=== PATIENT | male | born 1980 | race Caucasian/White ===

== ENCOUNTER 2023-12-15 21:15 | Emergency (ER) | payer BC, SELFPAY ==
[2023-12-15 21:17] VITALS: BP 140/99
[2023-12-15 21:57] VITALS: BMI 28.6
--- NOTE | 2023-12-15 22:00 | ED.GENMED ---
History of Present Illness
General
Chief Complaint: Eye Problems
Source: patient
Exam Limitations: none
Time Seen by Provider: 12/15/23 21:22
Nursing documentation reviewed up to this point in time: agreed with
History of Present Illness
History of Present Illness:
43-year-old male presents with foreign body in the right eye. He was working with a piece of plastic using needle-nose pliers and when he pulled on the plastic with a pliers a small chip came off and went into his right eye. He has a foreign body
sensation of the right eye. Denies vision loss or pain. No other complaints. He does not wear contacts.
Past History
Past History
ED Past Medical History: None
ED Past Surgical History: None
Social History
Tobacco: Non-smoker
Personal: Single
Living: with family
Employment: Employed
Family History
Family History: Other (Noncontributory)
Review of Systems
Review of Systems
All Other Systems: ROS reviewed and negative except as documented in HPI and ROS
EENT: Reports other (Foreign body sensation right eye)
Phy Exam
Physical Exam
Physical Exam:
General: Well appearing and non-toxic
Eye: See visual acuity in nursing note; pupils are equal round and reactive to light bilaterally, extraocular movements intact; with specific attention to the right eye: Slight injection of the lateral margin of the right conjunctiva; no hypopyon or
hyphema; inverted lid and swept fornices with successful removal of tiny sliver of plastic; on fluorescein examination no corneal abrasion noted, negative Buzz sign
Neck: appears supple
CV: No evidence of cyanosis
Resp: No accessory muscle use
Abd: Non-distended
Extremities: No deformities
Neuro: Alert
Psych: Normal affect
Skin: Intact
Scores
Heart Failure Risk
Heart Failure Risk Score: Not Applicable
Heart Score for Chest Pain Patients
STEMI patient?: Not applicable
Withdrawal Assessment of Alcohol
Withdrawal Assessment Completed?: Not applicable
Course
Orders/Labs/Results
Orders:
Orders
12/15/23 21:28
Tetracaine HCl [Tetracaine 0.5% Ophthalmic Solution] 1 drop .ROUTE .STK-MED ONE
Vital Signs
Initial and Last Documented VS:
Initial Vital Signs
Temp Pulse Resp BP Pulse Ox
36.9 C 78 18 140/99 99
12/15/23 21:17 12/15/23 21:17 12/15/23 21:17 12/15/23 21:17 12/15/23 21:17
Last Documented Vital Signs
Temp Pulse Resp BP Pulse Ox
36.9 C 78 18 140/99 99
12/15/23 21:17 12/15/23 21:17 12/15/23 21:17 12/15/23 21:17 12/15/23 21:17
MDM/Problems Addressed
Differential Diagnosis Includes:
Corneal abrasion, foreign body
MDM/Problems Addressed:
43-year-old male presents with foreign body sensation in the right eye he believes a chip of plastic went to his eye. Successfully removed at bedside. No corneal abrasion fluorescein assessment. Visual acuity normal. Discharge.
*Pulse Oximetry
Patient hypoxic: no
*Critical Care Note
Total Time (30-74mins, 75-104mins- exclusive of procedures): Not Applicable
Data Reviewed
Source: patient
ED Attending Note
-
Portions of this chart may have been created with voice recognition software.� Occasional wrong word or��sound alike� substitutions may have occurred due to the inherent limitations of voice recognition software.
Discharge Plan
Departure
Patient Disposition: Home (Routine Discharge)
Date of Disposition: 12/15/23
Time of Disposition: 22:30
Patient with high blood pressure during this ER visit?: Yes
Discharge Problem:
Acute foreign body of right cornea
Instructions: Foreign Body in Eye ED
Prescriptions:
No Action
ciprofloxacin HCl [Ciloxan] 5 ML drops
1 drp OPHTHALMIC .Q4H WHILE AWAKE Qty: 5 0RF
Activity Restrictions/Additional Instructions:
Thank you for visiting the Emergency Department at [facility].
1. Please schedule a follow up appointment as directed. Call first thing tomorrow morning to make an appointment.
2. If indicated, please take your medications as instructed and indicated on discharge paperwork.
3. If any of your symptoms do not improve, or persist, or become more severe within 6-12 hours, please return to the emergency department for further care.
4. Please return to the emergency department if you develop a headache, neck pain/stiffness, fever greater than 100.4F, chest pain, shortness of breath, persistent nausea, vomiting, slurred speech, difficulty walking, numbness/tingling, weakness,
signs of infection or any other symptoms that are worrisome to you.
Please call [phone] if you have any questions.
Interventions
Interventions:
*Risk Screen - Suicide Last Done: 12/15/23 21:17
*General Assessment Last Done: 12/15/23 21:17
*Neglect/Abuse Screening Last Done: 12/15/23 21:17
ED- Fall Risk Assessment Last Done: 12/15/23 21:58
*ED COVID-19 Vaccine History Last Done: 12/15/23 21:57
Discharge Date and Time
Print Language: TAMAZIGHT
== END 2023-12-15 22:54 | disposition home or self-care (01) ==
LOC: EMR 21:15
PROVIDERS: EMERGENCY PHYSICIAN Emergency Medicine
DX: T15.01XA Foreign body in cornea, right eye, initial encounter (principal); W44.B0XA Plastic object unspecified, entering into or through a natural orifice, initial encounter
CPT/HCPCS: 99283